=== PATIENT | female | born 1985 | race Caucasian/White ===

== ENCOUNTER → 2023-09-06 08:13 | Outpatient (REF) | payer BC, SELFPAY | LOC: HWWDC 08:13 | PROVIDERS: ATTENDING PHYSICIAN Obstetrics & Gynecology Gynecology; FAMILY PHYSICIAN Emergency Medicine | DX: Z12.31 Encounter for screening mammogram for malignant neoplasm of breast (principal) | CPT/HCPCS: 77063; 77067 ==

== ENCOUNTER → 2024-06-03 11:11 | Outpatient (REF) | payer BC, SELFPAY | LOC: RAD 11:11 | PROVIDERS: ATTENDING PHYSICIAN Internal Medicine Rheumatology; FAMILY PHYSICIAN Emergency Medicine | DX: M17.0 Bilateral primary osteoarthritis of knee (principal) | CPT/HCPCS: 73560; 73565 ==

== ENCOUNTER → 2024-08-14 09:20 | Outpatient (REF) | payer BC, SELFPAY | LOC: HWRAD 09:20 | PROVIDERS: ATTENDING PHYSICIAN Obstetrics & Gynecology Gynecology; FAMILY PHYSICIAN Emergency Medicine | DX: N91.2 Amenorrhea, unspecified (principal) | CPT/HCPCS: 76801; 76817 ==

== ENCOUNTER 2024-08-27 13:21 | Emergency (ER) | payer BC, SELFPAY ==
[2024-08-27 13:24] VITALS: BP 125/83
[2024-08-27 14:42] VITALS: BP 106/71
--- NOTE | 2024-08-27 14:46 | ED.GENMED ---
History of Present Illness
<Dustin Wright PA-C - Last Filed: 08/27/24 14:56>
General
Chief Complaint: Breathing Problem
Source: patient
Exam Limitations: none
Time Seen by Provider: 08/27/24 13:29
History of Present Illness
History of Present Illness:
38-year-old female presents with shortness of breath onset today. She is 9 weeks . She noticed after riding the [place] she had difficulty taking a deep breath. There is no chest pain. She denies hemoptysis. She is followed by OB at
[place] secondary to high risk state. She had history of placenta abruption last . No vaginal bleeding. No recent fever or cough. No other complaints at this time
Phy Exam
<Dustin Wright PA-C - Last Filed: 08/27/24 14:56>
Physical Exam
Physical Exam:
General: Well-appearing female no acute respiratory distress
HEENT: Normocephalic atraumatic
Heart: Regular rate and rhythm no murmurs
LUngs; CTA bilaterally. NO wheeze
ABd: Soft, nontender
Ext: no cyanosis or edema
Skin: warm, no rash
Course
<Dustin Wright PA-C - Last Filed: 08/27/24 14:56>
Orders/Labs/Results
Orders:
Orders
08/27/24 14:02
Electrocardiogram (*1) Urgent
Reason for Study: Shortness of Breath
EKG- Treatment ONCE
08/27/24 14:44
Complete Blood Count/With Diff Urgent
Comprehensive Metabolic Panel Urgent
D-Dimer Urgent
Troponin I Urgent
08/27/24 15:35
US 1st Trimester Urgent
Comment:
Reason For Exam: sob
Venous Doppler Lwr Ext Bilat [US Periph Venous LOWER Ext Thompson] Urgent
Comment:
Reason For Exam: sob
Abnormal Lab Results
08/27/24
14:44
WBC 11.0 H 10^3/uL
(4.8-10.8)
RBC 4.04 L 10^6/uL
(4.20-5.40)
Hct 35.5 L %
(37.0-47.0)
Absolute Neuts (auto) 7.6 H 10^3/uL
(1.4-6.5)
Absolute Monos (auto) 0.7 H 10^3/uL
(0.1-0.6)
D-Dimer 0.55 H ug/mlFEU
(0.00-0.50)
08/27/24 14:44
08/27/24 14:44
Vital Signs
Initial and Last Documented VS:
Initial Vital Signs
Temp Pulse Resp BP Pulse Ox
97.8 F 79 16 125/83 98
08/27/24 13:24 08/27/24 13:24 08/27/24 13:24 08/27/24 13:24 08/27/24 13:24
Last Documented Vital Signs
Temp Pulse Resp BP Pulse Ox
97.8 F 79 16 125/83 98
08/27/24 13:24 08/27/24 13:24 08/27/24 13:24 08/27/24 13:24 08/27/24 13:24
<Aaron Hinton, DO - Last Filed: 08/27/24 18:09>
Orders/Labs/Results
Orders:
Orders
08/27/24 14:02
Electrocardiogram (*1) Urgent
Reason for Study: Shortness of Breath
EKG- Treatment ONCE
08/27/24 14:44
Complete Blood Count/With Diff Urgent
Comprehensive Metabolic Panel Urgent
D-Dimer Urgent
Troponin I Urgent
08/27/24 15:35
US 1st Trimester Urgent
Comment:
Reason For Exam: sob
Venous Doppler Lwr Ext Bilat [US Periph Venous LOWER Ext Thompson] Urgent
Comment:
Reason For Exam: sob
Abnormal Lab Results
08/27/24
14:44
WBC 11.0 H 10^3/uL
(4.8-10.8)
RBC 4.04 L 10^6/uL
(4.20-5.40)
Hct 35.5 L %
(37.0-47.0)
Absolute Neuts (auto) 7.6 H 10^3/uL
(1.4-6.5)
Absolute Monos (auto) 0.7 H 10^3/uL
(0.1-0.6)
D-Dimer 0.55 H ug/mlFEU
(0.00-0.50)
08/27/24 14:44
08/27/24 14:44
Vital Signs
Initial and Last Documented VS:
Initial Vital Signs
Temp Pulse Resp BP Pulse Ox
97.8 F 79 16 125/83 98
08/27/24 13:24 08/27/24 13:24 08/27/24 13:24 08/27/24 13:24 08/27/24 13:24
Last Documented Vital Signs
Temp Pulse Resp BP Pulse Ox
97.8 F 79 16 125/83 98
08/27/24 13:24 08/27/24 13:24 08/27/24 13:24 08/27/24 13:24 08/27/24 13:24
Yvanlt;Dustin Wright PA-C - Last Filed: 08/27/24 14:56>
MDM/Problems Addressed
Differential Diagnosis Includes:
Shortness of breath in early . No respiratory distress she is not hypoxic. Oxygen saturation 100% on room air with a normal heart rate. No fever or cough. Lungs are clear. Consider deconditioning versus electrolyte abnormality versus
anemia versus pneumonia versus PE.
Discussed with emergency room attending. Will check labs including D-dimer.
<Aaron Hinton DO - Last Filed: 08/27/24 18:09>
*Radiology
Radiology exam reviewed: radiology read reviewed
*Pulse Oximetry
Patient hypoxic: no
*EKG
Interpreted by ED Provider?: Yes
Interpretation: normal
Comparison EKG: no comparison EKG present
Heart Rate: 70
Rate: normal
Rhythm: sinus
Ischemia: no ischemia
*Management Trainee Interpretation
Rate: normal
Interpretation: normal
Heart Rate: 70
Rhythm: sinus
*Critical Care Note
Total Time (30-74mins, 75-104mins- exclusive of procedures): Not Applicable
ED Attending Note
<Dustin Wright PA-C - Last Filed: 08/27/24 14:56>
-
Portions of this chart may have been created with voice recognition software.� Occasional wrong word or��sound alike� substitutions may have occurred due to the inherent limitations of voice recognition software.
<Aaron Hinton DO - Last Filed: 08/27/24 18:09>
ED Attending Note
Patient seen and examined by attending physician: Yes
I performed the substantive portion of visit, reviewed & personally made and approve the management plan that is documented in note by myself or KALRA.: Yes
ED Attending Note:
Seen with PA examined independently 38-year-old female 9 weeks female third developed shortness of breath after using exercise bike feeling better now, shared decision making, with workup D-dimer slightly elevated,
Normal vital signs will not proceed with CTA will do Dopplers of the bilateral legs also ultrasound, EKG on exam she looks comfortable she not tachypneic not tachycardic she is equal breath sounds I do not suspect pneumothorax
Discharge Plan
Departure
Patient Disposition: Home (Routine Discharge)
Date of Disposition: 08/27/24
Time of Disposition: 18:07
Patient with high blood pressure during this ER visit?: No
Condition: Good
Discharge Problem:
Breath, shortness,
Instructions: tests, Shortness of breath, Shortness of breath in adults - ED discharge instructions
Prescriptions:
No Action
metformin 500 mg Tablet
700 mg PO BID
levothyroxine 25 mcg Tablet
20 mcg PO DAILY
1 mg Tablet
1 tab PO DAILY
omega-3 fatty acids Capsule
1,000 mg PO DAILY
Referrals:
Nadiya Rubio MD [Family Provider] - Next open appointment
Activity Restrictions/Additional Instructions:
Follow-up with your primary care provider and [facility] return to the ER for worsening symptoms
Interventions
Interventions:
*Risk Screen - Suicide Last Done: 08/27/24 13:24
*Neglect/Abuse Screening Last Done: 08/27/24 13:24
ED- Cardiac Assessment Last Done: 08/27/24 15:07
ED- Pulmonary Assessment Last Done: 08/27/24 15:07
Discharge Date and Time
Print Language: TAJIK
[2024-08-27 14:51] LABS: % Basophils 0.4 % (0-2); % Eosinophils 2.2 % (0-6); % Immature Granulocytes 0.3 % (0-0.5); % Monocytes 6.5 % (1.7-9.3); % Neutrophils 68.6 % (42.2-75.2); Absolute Eosinophils 0.2 10^3/uL (0-0.7); Absolute Lymphocytes 2.4 10^3/uL (1.2-3.4); Absolute Monocytes 0.7 10^3/uL (0.1-0.6); Absolute Neutrophils 7.6 10^3/uL (1.4-6.5); Hematocrit 35.5 % (37.0-47.0); Hemoglobin 12.4 g/dL (12.0-16.0); Mean Corp Hgb Conc. 34.9 g/dL (33.0-37.0); Mean Corpuscular Hgb 30.7 pg (27.0-31.0); Mean Corpuscular Volume 87.9 fL (81.0-99.0); Mean Platelet Volume 9.6 fL (7.4-10.4); Nucleated Red Blood Cells % 0 %; Platelet Count 270 10^3/uL (130-400); Red Blood Cell Count 4.04 10^6/uL (4.20-5.40)
[2024-08-27 15:00] VITALS: BP 102/70
[2024-08-27 15:05] LABS: D-Dimer 0.55 ug/mlFEU (0.00-0.50)
[2024-08-27 15:06] LABS: ALT (SGPT) 16 U/L (0-35); AST (SGOT) 23 U/L (14-36); Albumin 3.8 g/dl (3.5-5.0); Alkaline Phosphatase 52 U/L (38-126); Blood Urea Nitrogen 11 mg/dl (7-17); Calcium 9.2 mg/dl (8.4-10.2); Carbon Dioxide 28 mmol/L (22-30); Chloride 103 mmol/L (98-107); Glucose 84 mg/dl (70-99); Potassium 4.1 mmol/L (3.5-5.1); Sodium 136 mmol/L (135-145); Total Bilirubin 0.3 mg/dl (0.2-1.3); Total Protein 6.6 g/dl (6.3-8.2); eGFR > 60.00
[2024-08-27 15:15] LABS: Troponin I < 0.012 ng/ml
[2024-08-27 16:00] VITALS: BP 101/70
[2024-08-27 17:21] VITALS: BP 100/72
[2024-08-27 18:00] VITALS: BP 104/68
== END 2024-08-27 19:13 | disposition home or self-care (01) ==
LOC: EMR 13:21
PROVIDERS: Physician Assistant; EMERGENCY PHYSICIAN Emergency Medicine; FAMILY PHYSICIAN Emergency Medicine
DX: O99.891 Other specified diseases and conditions complicating pregnancy (principal); R06.02 Shortness of breath; O09.521 Supervision of elderly multigravida, first trimester; Z3A.09 9 weeks gestation of pregnancy
CPT/HCPCS: 99284; 76801; 80053; 84484; 85025; 85379; 93005; 93970

== ENCOUNTER → 2025-01-04 07:54 | Outpatient (REF) | payer BC, SELFPAY | LOC: WDC 07:54 | PROVIDERS: ATTENDING PHYSICIAN Surgery; FAMILY PHYSICIAN Emergency Medicine | DX: R92.2 Inconclusive mammogram (principal) | CPT/HCPCS: 76641 ==

== ENCOUNTER → 2025-05-31 10:04 | Outpatient (REF) | payer BC, SELFPAY | LOC: WDC 10:04 | PROVIDERS: ATTENDING PHYSICIAN Surgery; FAMILY PHYSICIAN Emergency Medicine | DX: R92.2 Inconclusive mammogram (principal); Z80.3 Family history of malignant neoplasm of breast | CPT/HCPCS: 76641 ==